=== PATIENT | male | born 1955 | race Caucasian/White ===

== ENCOUNTER 2019-12-30 09:47 | Outpatient (REF) | payer BC, SELFPAY ==
[2019-12-30 21:19] LABS: HCT 43.5 % (40.0-50.0); HGB 14.8 g/dL (13.5-17.5); Mean Corpuscular Hemoglobin 31.8 pg (27.0-33.0); Mean Corpuscular Volume 93.3 fL (80-95); Mean Platelet Volume 10.8 fL (8.0-11.0); Platelet Count 170 x1000/uL (130-400); RBC 4.66 m/cumm (4.50-6.00); RBC Distribution Width 12.7 % (11.8-14.1); White Blood Cell Count 6.19 k/cumm (4.4-10.8)
[2019-12-30 21:45] LABS: ALT 24 U/L (16-63); AST 27 U/L (15-37); Alkaline Phosphatase 51 U/L (46-116); Anion Gap 7.7 mmol/L (3-11); BUN 21 mg/dL (7-18); Bilirubin, Total 0.6 mg/dL (0.2-1.0); CO2 27.3 mmol/L (21.0-32.0); CREATININE 1.12 mg/dL (0.70-1.30); Calcium 8.6 mg/dL (8.5-10.1); Chloride 105 mmol/L (98-107); Glucose 100 mg/dL (74-106); Magnesium 2.1 mg/dL (1.8-2.4); Potassium 4.5 mmol/L (3.5-5.1); Sodium 140 mmol/L (136-145); TSH 0.92 uIU/mL (0.36-3.74); Total Protein 6.6 g/dL (6.4-8.2)
== END 2019-12-30 10:07 ==
LOC: NCHCN 09:47
PROVIDERS: PCP Nurse Practitioner Family; Visit Provider Registered Nurse
DX: I11.0 Hypertensive heart disease with heart failure (principal); R55 Syncope and collapse
CPT/HCPCS: 80053; 85027; 83735; 84443

== ENCOUNTER 2020-01-10 15:20 | Outpatient (REF) | payer BC, SELFPAY ==
[2020-01-10 21:08] LABS: Anion Gap 10.3 mmol/L (3-11); BUN 18 mg/dL (7-18); CO2 25.7 mmol/L (21.0-32.0); CREATININE 1.12 mg/dL (0.70-1.30); Calcium 8.8 mg/dL (8.5-10.1); Chloride 104 mmol/L (98-107); Glucose 90 mg/dL (74-106); Potassium 4.2 mmol/L (3.5-5.1); Sodium 140 mmol/L (136-145)
== END 2020-01-10 15:40 ==
LOC: NCHCN 15:20
PROVIDERS: PCP Nurse Practitioner Family; Visit Provider Registered Nurse
DX: I10 Essential (primary) hypertension (principal)
CPT/HCPCS: 80048

== ENCOUNTER 2020-11-07 10:10 | Outpatient (REF) | payer BC, SELFPAY ==
[2020-11-07 14:21] LABS: Calculated LDL 104 mg/dL (<100); Cholesterol 179 mg/dL (<200); HDL Cholesterol 61 mg/dL (40-60); Triglyceride 74 mg/dL (<150)
[2020-11-07 22:46] LABS: PSA, Screening 0.7 ng/mL (0.0-4.5)
== END 2020-11-07 10:11 | disposition home or self-care (01) ==
LOC: NCHCN 10:10
PROVIDERS: PCP Nurse Practitioner Family; Visit Provider Registered Nurse
DX: Z00.00 Encounter for general adult medical examination without abnormal findings (principal); I10 Essential (primary) hypertension; Z12.5 Encounter for screening for malignant neoplasm of prostate
CPT/HCPCS: 80061; 84153

== ENCOUNTER 2021-02-06 12:50 | Outpatient (REF) | payer BC, SELFPAY ==
[2021-02-06 14:01] LABS: Calculated LDL 80 mg/dL (<100); Cholesterol 156 mg/dL (<200); HDL Cholesterol 62 mg/dL (40-60); Triglyceride 74 mg/dL (<150)
== END 2021-02-06 12:51 | disposition home or self-care (01) ==
LOC: NCHCN 12:50
PROVIDERS: PCP Nurse Practitioner Family; Visit Provider Registered Nurse
DX: Z00.00 Encounter for general adult medical examination without abnormal findings (principal); I10 Essential (primary) hypertension
CPT/HCPCS: 80061

== ENCOUNTER 2021-07-24 14:05 | Outpatient (REF) | payer BC, SELFPAY ==
[2021-07-24 21:53] LABS: ALT 28 U/L (16-63); AST 32 U/L (15-37); Albumin 4.3 g/dL (3.4-5.0); Alkaline Phosphatase 67 U/L (46-116); Anion Gap 9.8 mmol/L (3-11); BUN 18 mg/dL (7-18); Bilirubin, Total 0.7 mg/dL (0.2-1.0); CO2 26.2 mmol/L (21.0-32.0); CREATININE 1.1 mg/dL (0.70-1.30); Calcium 8.9 mg/dL (8.5-10.1); Chloride 103 mmol/L (98-107); Glucose 85 mg/dL (74-106); Potassium 4.7 mmol/L (3.5-5.1); Sodium 139 mmol/L (136-145); Total Protein 7.3 g/dL (6.4-8.2)
== END 2021-07-24 14:06 | disposition home or self-care (01) ==
LOC: NCHCN 14:05
PROVIDERS: PCP Nurse Practitioner Family; Visit Provider Registered Nurse
DX: I10 Essential (primary) hypertension (principal)
CPT/HCPCS: 80053; 84153; 86803

== ENCOUNTER 2021-08-07 17:15 | Outpatient (REF) | payer BC, SELFPAY ==
[2021-08-07 21:44] LABS: BUN 24 mg/dL (7-18); CREATININE 1.2 mg/dL (0.70-1.30); Calcium 8.4 mg/dL (8.5-10.1); Chloride 105 mmol/L (98-107); Glucose 110 mg/dL (74-106); Sodium 143 mmol/L (136-145)
[2021-08-08 18:04] LABS: PSA, Screening 0.7 ng/mL (0.0-4.5)
[2021-08-09 10:34] LABS: Hepatitis C Ab w Rflx HCV PCR Negative (Negative)
== END 2021-08-07 17:16 | disposition home or self-care (01) ==
LOC: NCHCN 17:15
PROVIDERS: PCP Nurse Practitioner Family; Visit Provider Registered Nurse
DX: Z11.59 Encounter for screening for other viral diseases (principal); Z12.5 Encounter for screening for malignant neoplasm of prostate; I10 Essential (primary) hypertension
CPT/HCPCS: 80048; 84153; 86803

== ENCOUNTER 2022-09-24 17:30 | Outpatient (REF) | payer MEDICARE, SELFPAY ==
[2022-09-24 21:53] LABS: ALT 34 U/L (16-63); AST 49 U/L (15-37); Alkaline Phosphatase 64 U/L (46-116); Anion Gap 6.1 mmol/L (3-11); BUN 23 mg/dL (7-18); Bilirubin, Total 0.4 mg/dL (0.2-1.0); CO2 27.9 mmol/L (21.0-32.0); CREATININE 1.2 mg/dL (0.70-1.30); Calcium 8.6 mg/dL (8.5-10.1); Chloride 110 mmol/L (98-107); Estimated GFR 67.11 (mL/min/1.73m2); Glucose 87 mg/dL (74-106); Potassium 4.7 mmol/L (3.5-5.1); Sodium 144 mmol/L (136-145); Total Protein 6.9 g/dL (6.4-8.2)
[2022-09-24 22:03] LABS: Calculated LDL 60 mg/dL (<100); Cholesterol 124 mg/dL (<200); HDL Cholesterol 54 mg/dL (40-60); Triglyceride 51 mg/dL (<150)
== END 2022-09-24 17:31 | disposition home or self-care (01) ==
LOC: NCHCN 17:30
PROVIDERS: PCP Nurse Practitioner Family; Visit Provider Registered Nurse
DX: F10.10 Alcohol abuse, uncomplicated (principal); R79.89 Other specified abnormal findings of blood chemistry
CPT/HCPCS: 80053; 80061

== ENCOUNTER 2023-05-08 16:26 | Outpatient (REF) | payer MEDICARE, SELFPAY ==
[2023-05-08 16:56] LABS: HCT 41.9 % (40.0-50.0); HGB 14.2 g/dL (13.5-17.5); MCH 32.1 pg (27.0-33.0); MCHC 33.9 % (32.0-36.0); MCV 95 fL (80-95); MPV 10.6 fL (8.0-11.0); Platelet Count 143 10^3/uL (130-400); RBC 4.42 10^6/uL (4.36-5.78); RDW 12.5 % (11.8-14.1); RDW-SD 43.6 fL; WBC 13.27 10^3/uL (4.4-10.8)
[2023-05-08 17:39] LABS: ALT 30 U/L (16-63); AST 30 U/L (15-37); Albumin 3.8 g/dL (3.4-5.0); Alkaline Phosphatase 67 U/L (46-116); Anion Gap 7.8 mmol/L (3-11); BUN 23 mg/dL (7-18); Bilirubin, Total 0.7 mg/dL (0.2-1.0); CO2 25.2 mmol/L (21.0-32.0); CREATININE 1.2 mg/dL (0.70-1.30); Calcium 8.9 mg/dL (8.5-10.1); Calculated LDL 78 mg/dL (<100); Chloride 103 mmol/L (98-107); Cholesterol 142 mg/dL (<200); Glucose 101 mg/dL (74-106); HDL Cholesterol 58 mg/dL (40-60); Potassium 4.7 mmol/L (3.5-5.1); Sodium 136 mmol/L (136-145); Triglyceride 34 mg/dL (<150)
== END 2023-05-08 16:27 | disposition home or self-care (01) ==
LOC: NCHCN 16:26
PROVIDERS: PCP Nurse Practitioner Family; Visit Provider Family Medicine
DX: I10 Essential (primary) hypertension (principal); Z13.29 Encounter for screening for other suspected endocrine disorder; Z72.89 Other problems related to lifestyle; Z00.00 Encounter for general adult medical examination without abnormal findings; Z13.220 Encounter for screening for lipoid disorders
CPT/HCPCS: 80053; 80061; 85027; 84443

== ENCOUNTER 2023-12-16 09:31 | Outpatient (REF) | payer MEDICARE, SELFPAY ==
[2023-12-16 14:47] LABS: HCT 47.5 % (40.0-50.0); MCH 32.9 pg (27.0-33.0); MCHC 33.7 % (32.0-36.0); MCV 98 fL (80-95); MPV 10.6 fL (8.0-11.0); Platelet Count 128 10^3/uL (130-400); RBC 4.87 10^6/uL (4.36-5.78); RDW 13.2 % (11.8-14.1); RDW-SD 47.1 fL; WBC 12.79 10^3/uL (4.4-10.8)
[2023-12-16 15:22] LABS: ALT 26 U/L (16-63); AST 30 U/L (15-37); Albumin 4.1 g/dL (3.4-5.0); Alkaline Phosphatase 85 U/L (46-116); Anion Gap 4.2 mmol/L (3-11); BUN 22 mg/dL (7-18); Bilirubin, Total 0.6 mg/dL (0.2-1.0); CO2 30.8 mmol/L (21.0-32.0); CREATININE 1.3 mg/dL (0.70-1.30); Calcium 8.8 mg/dL (8.5-10.1); Chloride 105 mmol/L (98-107); Estimated GFR 60.59 (mL/min/1.73m2); FREE T4 0.87 ng/dL (0.76-1.46); Glucose 89 mg/dL (74-106); Potassium 4.6 mmol/L (3.5-5.1); Sodium 140 mmol/L (136-145); TSH 1.27 uIU/Ml (0.36-3.74); Total Protein 7.3 g/dL (6.4-8.2)
== END 2023-12-16 09:32 | disposition home or self-care (01) ==
LOC: NCHCN 09:31
PROVIDERS: PCP Nurse Practitioner Family; Visit Provider Family Medicine
DX: R00.2 Palpitations (principal)
CPT/HCPCS: 80053; 85027; 84439; 84443

== ENCOUNTER 2025-04-26 18:39 | Outpatient (REF) | payer MEDICARE, SELFPAY ==
[2025-04-26 15:27] LABS: ALT 20 U/L (16-63); AST 39 U/L (15-37); Albumin 3.9 g/dL (3.4-5.0); Alkaline Phosphatase 67 U/L (46-116); Anion Gap 8.3 mmol/L (3-11); BUN 24 mg/dL (7-18); Bilirubin, Total 0.5 mg/dL (0.2-1.0); CO2 27.7 mmol/L (21.0-32.0); Calcium 9.3 mg/dL (8.5-10.1); Calculated LDL 72 mg/dL (<100); Chloride 105 mmol/L (98-107); Cholesterol 135 mg/dL (<200); Estimated GFR 65.87 (mL/min/1.73m2); Glucose 98 mg/dL (74-106); HDL Cholesterol 55 mg/dL (>or=40); Potassium 5.4 mmol/L (3.5-5.1); Sodium 141 mmol/L (136-145); Total Protein 6.8 g/dL (6.4-8.2); Triglyceride 41 mg/dL (<150)
[2025-04-26 17:06] LABS: COMMENT (LAB VIEW ONLY) 81.82 mg/dL; Microalb ug/mg Crea 8.4 ug/mg Cr
== END 2025-04-26 18:40 | disposition home or self-care (01) ==
LOC: NCHCN 18:39
PROVIDERS: Visit Provider Family Medicine
DX: I10 Essential (primary) hypertension (principal)
CPT/HCPCS: 80053; 80061; 82043; 82570